=== PATIENT | female | born 1990 | race Caucasian/White ===

== ENCOUNTER 2024-04-01 16:49 | Emergency (ER) | payer BC, SELFPAY ==
[2024-04-01] MEDS ORDERED: Famotidine/PF 20 mg/2ml Vial ONE (16:58)
[2024-04-01] MEDS ORDERED: Ketorolac Tromethamine 30 MG (1 mL) VIAL ONE (17:03)
[2024-04-01] MEDS ORDERED: Morphine 4 MG/ML VIAL ONE ×2 (17:47→19:45)
== END 2024-04-01 20:02 | disposition home or self-care (01) ==
LOC: ERS 16:49
DX: T63.461A Toxic effect of venom of wasps, accidental (unintentional), initial encounter (principal); T78.2XXA Anaphylactic shock, unspecified, initial encounter; F17.210 Nicotine dependence, cigarettes, uncomplicated
CPT/HCPCS: 96374; 96375; 96376; J1885; J2270; S0028